=== PATIENT | female | born 1985 | race African-American/Black ===

== ENCOUNTER 2025-06-20 07:15 | Emergency (ER) | payer BC ==
[2025-06-20 08:11] LABS: #Basophils 0.08 10x3/uL (0.0-0.2); #Eosinophils 0.24 10x3/uL (0.0-0.5); #Monocytes 0.40 10x3/uL (0.0-1.1); #Neutrophils 2.29 10x3/uL (1.5-8.4); %Basophils 1.7 % (0.0-2.0); %Eosinophils 5.1 % (0.0-6.0); %Lymphocytes 35.5 % (18.0-47.0); %Monocytes 8.5 % (0.0-10.0); %Neutrophils 49.0 % (40.0-75.0); Hematocrit 37.7 % (34.9-44.5); Hemoglobin 12.2 g/dL (12.0-15.5); Mean Corpuscular Hemoglobin 30.2 pg (27.0-33.0); Mean Corpuscular Volume 93.3 fL (81.6-98.3); Platelet Count 219 10x3/uL (150-450); Red Blood Cell (RBC) Count 4.04 10x6/uL (3.90-5.03); White Blood Cell (WBC) Count 4.68 10x3/uL (3.5-10.5)
[2025-06-20 08:25] LABS: Troponin I Less than 0.010 ng/mL (< 0.028)
[2025-06-20 08:36] LABS: ALT (SGPT) 13 U/L (Less than 34); AST (SGOT) 19 U/L (11-34); Albumin 3.4 g/dL (3.1-4.5); Alkaline Phosphatase 55 U/L (40-110); Anion Gap 11 mmol/L (10-20); BUN (Urea Nitrogen) 11 mg/dL (7.0-18.7); Bilirubin, Total 0.2 mg/dL (0.3-1.2); Calc. Creatinine Clearance 0 mL/min (70-130); Calcium 8.2 mg/dL (7.8-10.44); Carbon Dioxide 24 mmol/L (22-29); Chloride 107 mmol/L (98-107); Globulin 3.1 g/dL (2.4-3.5); Glucose 112 mg/dL (70-105); Lipase 25 U/L (8-78); Potassium 3.8 mmol/L (3.5-5.1); Sodium 138 mmol/L (136-145)
[2025-06-20 08:44] LABS: BHCG - Serum Negative (NEGATIVE); Pregs Control Background? CLEAR/WHITE (CLR/WHITE); Pregs Control Bar Appear? YES (CONTROL BAR)
[2025-06-20] MEDS ORDERED: Ketorolac Tromethamine 30 MG (1 mL) VIAL ONE (09:16)
[2025-06-20] MEDS ORDERED: Iopamidol 300 61% 100 ML VIAL FS ONE (10:18)
== END 2025-06-20 09:34 | disposition home or self-care (01) ==
LOC: CSHERS 07:15
DX: R07.81 Pleurodynia (principal); E03.9 Hypothyroidism, unspecified; Z79.890 Hormone replacement therapy
CPT/HCPCS: 36415; 71045; 74177; 76705; 80053; 83605; 83690; 84484; 84703; 85025; 93005; 96374; J1885